=== PATIENT | male | born 1945 | race Caucasian/White ===

== ENCOUNTER 2018-07-13 06:35 | Day surgery (SDC) | payer OTHER ==
[~2018-07-13 06:35] MED LIST: OMEPRAZOLE40 MG PO; TRAM1TAB98 PO; ZOCOR40 MG PO
== END 2018-07-13 18:55 | disposition home or self-care (01) ==
LOC: CIR.AMB 06:35
DX: S52.592A Other fractures of lower end of left radius, initial encounter for closed fracture (principal)
CPT/HCPCS: 25609; 20902; 25118; 25280; C1776